=== PATIENT | female | born 1955 | race Caucasian/White ===

== ENCOUNTER → 2019-02-20 | Outpatient (CLI) | payer OTHER ==
[~2019-02-20] MED LIST: ACCUPRIL40 MG PO; ACYCLOVIR 400400 M1; AMBIEN 10 MG TA10 MG PO; AMITRIPTYLINE H25 M2 PO; ASPIR 8181 MG PO; B COMPLETE1 EAC1 PO; CO-ENZYME Q101 EACH PO; CYCLOBENZAPRINE5 MG PO; DILTIAZEM ER180 M1 PO; HYDROCODONE-AP1 EAC6 PO; K-DUR 20 MEQ T20 MEQ PO; LASIX 40 MG TAB40 M1 GT; LASIX 40 MG TAB40 M1 PO; LOVASTAT20 PO; MAGNESIUM250 M1 PO; MEGA RED KRILL OIL PO; MELATONIN3 MG PO; MENEST0.625 MG PO; MINOCIN100 MG PO; NEURONTIN 300300 M1 PO; NORCO 7.5-3251 EACH PO; PHENERGAN25 MG RE; PREDNISONE 10 M10 M1 PO; PREVACID 30MG C30 M1 PG; PRILOSEC40 MG PO; ROSUVASTATIN CA20 MG PO; VICODIN 5-5001 EACH PO; VITAMIN B-125000 MCG SL; VITAMIN D-32000 UNIT PO; XANAX 0.25 MG0.25 MG PO; ZANTAC150 M2 PO; ZOCOR 20 MG TAB20 M1 PO
== END ==
LOC: CAT 10:49
DX: Z13.6 Encounter for screening for cardiovascular disorders (principal); E78.00 Pure hypercholesterolemia, unspecified; I25.10 Atherosclerotic heart disease of native coronary artery without angina pectoris

== ENCOUNTER 2019-03-16 07:46 | Inpatient (IN) | payer OTHER ==
[2019-03-06 13:32] LABS: HEMATOCRIT 41.7 % (37.0-47.0); HEMOGLOBIN 14.1 gm/dL (12.0-15.0); MCH 32.3 pg (26.0-34.0); MCHC 33.7 g/dL (28.0-37.0); RBC 4.35 mil/uL (4.20-5.00); RDW 13.9 % (10.5-14.5); WBC 7.9 thou/uL (4.0-11.0)
[2019-03-06 13:36] LABS: URINE BILIRUBIN NEGATIVE (Negative); URINE BLOOD NEGATIVE (Negative); URINE CLARITY CLEAR; URINE COLOR YELLOW; URINE GLUCOSE-RANDOM* NEGATIVE (Negative); URINE KETONES 1+ (Negative); URINE LEUKOCYTES-REFLEX NEGATIVE (Negative); URINE NITRITE-REFLEX NEGATIVE (Negative); URINE PROTEIN (DIPSTICK) NEGATIVE (Negative); URINE UROBILINOGEN 0.2 E.U./dl (0.2-1.0)
[2019-03-06 13:43] LABS: ALBUMIN 4.4 g/dL (3.4-5.0); CALCIUM 9.6 mg/dL (8.5-10.1)
[2019-03-06 13:45] LABS: PROTIME 10.1 Seconds (9.3-11.4)
[~2019-03-16] VITALS: Ht 165.1 cm; Wt 82.6 kg
[~2019-03-16 07:46] MED LIST changes: -ASPIR 8181 MG PO; -NEURONTIN 300300 M1 PO; -NORCO 7.5-3251 EACH PO
[2019-03-16 10:16] VITALS: BP 119/68
--- NOTE | 2019-03-16 13:57 | NUR ---
63 YO FEMALE ADMITTED TO 437 FROM PACU. A&OX4. GADIEL DRSG WITH POLAR PACK SECURED WITH HUAN WRAP. DENIES PAIN AT THIS TIME. FAMILY AT BEDSIDE. ORIENTED PT TO ROOM, CALL LIGHT WITH IN REACH.
[2019-03-16 15:16] VITALS: BP 121/67
[2019-03-16 19:14] VITALS: BP 121/62
[2019-03-16 23:51] VITALS: BP 118/58
--- NOTE | 2019-03-17 03:44 | NUR ---
PATIENT ALERT AND ORIEMTED X4. PATIENT GETTING UO TO BSC , PASSING FLATUS. SLEPT MOST OF NIGHT. DRESSING ON R KNEE D/I. DAUGHTER IN ROOM WITH PATIENT. C/O PAIN XI, MED GIVEN.
[2019-03-17 05:16] VITALS: BP 115/56
[2019-03-17 07:30] LABS: HEMATOCRIT 33.6 % (37.0-47.0); HEMOGLOBIN 11.3 gm/dL (12.0-15.0); MCH 32.8 pg (26.0-34.0); MCHC 33.7 g/dL (28.0-37.0); MCV 97.3 fL (80.0-100.0); RBC 3.46 mil/uL (4.20-5.00); RDW 14.1 % (10.5-14.5); WBC 14.8 thou/uL (4.0-11.0)
[2019-03-17 07:40] VITALS: BP 106/52
--- NOTE | 2019-03-17 10:23 | NUR ---
ASSESSMENT-PT LIVES AT HOME WITH HER . PT SAYS SHE HAS A ROLLER WALKER AT HOME ALREADY. ONLY CONCERN IS THAT SHE HAS A NARROW DOORWAY INTO THE BATHROOM. SPOUSE WILL ASSIST HER WITH WORKING OUT HOW TO GET TO THE BATHROOM OR THEY WILL GET A BSC. PT HAS HER OUTPT THERAPY APPOINTMENT ARRANGED FOR WEDNESDAY WITH [facility]. SPOUSE AND DTR AT [facility] BEDSIDE. NO OTHER DC NEEDS IDENTIFIED.
--- NOTE | 2019-03-17 13:56 | NUR ---
ASSUMED CARE OF PT AT 0700. PT UP AND ABLE TO WALK WITHOUT FATIGUE OR DIZZINESS. WORKED WITH PT AND WAS CLEARED. PT HAS POLAR PACK, GADIEL DRESSING, SCD'S AND KNEE HIGH BRIGITTE HOSE IN PLACE. PAIN UNDER CONTROL BY PAIN MEDICATION. WILL BE DISCHARGED FOLLOWING DOCTORS ORDERS. WILL CONTINUE TO MONITOR PT.
[2019-03-17] MEDS ORDERED: ASPIR 8181 MG PO (15:56)
[2019-03-17] MEDS ORDERED: NORCO 7.5-3251 EACH PO (15:56)
[2019-03-17] MEDS ORDERED: NEURONTIN 300300 M1 PO (15:57)
[2019-03-17 15:58] VITALS: BP 91/46
--- NOTE | 2019-03-17 15:59 | O ---
[facility] [address] OPERATIVE REPORT Name: RUDI COLES Room #: 437-P ADM IN M.R.#: [id number] Admission: 03/16/19 Attend Phys: Ilan Maldonado MD Discharge: Date of : 51 Report #: [id number] THIS REPORT FOR: //name// CC: Ilan Ha DATE OF SERVICE: 03/16/2019 PREOPERATIVE DIAGNOSIS: Right knee osteoarthritis. POSTOPERATIVE DIAGNOSIS: Right knee osteoarthritis. PROCEDURE: Right total knee arthroplasty using Navio robotic assistance. SURGEON: Ilan Maldonado MD. DRUG ENFORCEMENT AGENT: Shira Cordova PA-C. INDICATIONS FOR DRUG ENFORCEMENT AGENT: Throughout the case, extensive retraction and manipulation of the knee was required. This was afforded to me by my assistant prosecuting attorney. ANESTHESIA: LMA with an adductor canal block. IMPLANTS: [employer]hew size 5 Journey II BCS Oxinium femur, a size 3 tibia, size 9 polyethylene and size 35 patella. TOURNIQUET TIME: 52 minutes. ESTIMATED BLOOD LOSS: 25 mL. COMPLICATIONS: None. SPECIMENS: None. CONDITION UPON LEAVING THE OPERATING ROOM: Stable. INDICATIONS FOR PROCEDURE: The patient is a 63-year-old female with right knee osteoarthritis. She had failed conservative measures for this and after discussion with her, she elected for right total knee arthroplasty. DESCRIPTION OF PROCEDURE: Risks, benefits, alternatives, complications were discussed in detail with the patient including but not limited to risk of anesthesia, risk of damage to nerves, arteries, blood vessels, risk for infection, bleeding, risk for continued knee pain, need for reoperation. Informed consent was obtained from the patient. Right knee was appropriately marked in the preoperative holding area. IV Ancef was given for preoperative [facility] [address] [place] [address] OPERATIVE REPORT Name: RUDI COLESN Room #: 437-P [facility] IN M.R.#: [id number] Admission: 03/16/19 Attend Phys: Ilan Maldonado MD Discharge: Date of : 51 Report #: [id number] antibiotics. Adductor canal block was placed by Anesthesia. She was brought to the operating room and placed in supine position on operating room table. LMA anesthesia was induced without complication. Tourniquet was placed on the right thigh. Right lower extremity was prepped and draped in normal sterile fashion. Timeout was performed properly identifying the patient and procedure as well as the instrumentation and implants. All in the operating room were in agreement. Right lower extremity was exsanguinated, tourniquet was inflated. Tourniquet time was 52 minutes. Standard midline approach to the knee was made with 10 blade through the skin and soft tissue. Dissection was taken down sharply to the fascia and deep flaps were developed medially and laterally. Fresh 10 blade was used to make a medial parapatellar arthrotomy and the knee was inspected. There was severe medial compartment osteoarthritis with moderate lateral patellofemoral involvement. ACL and PCL were removed sharply. Reference pins were placed in the femur and the tibia and the knee was digitally mapped using the [employer] robotic system. Intraoperative plan was made and we sized the size 5 femur with a size 3 tibia and 10 spacer. After acceptance of the intraoperative plan, the distal femoral cut was made with a Navio bur. The distal femoral cutting block was then pinned in place. Chamfer cuts were made on the femur. Attention was then turned to the tibia. The remainder of the menisci removed with Bovie cautery. Tibial resection guide was pinned in place using the Navio for placement and tibial resection was made. After this, flexion and extension gaps were checked and found to have good balance in flexion and extension both medially and laterally. Tibia was then sized and found to be a size 3. Size 3 tibial trial was placed, pinned and punched. A size 5 femoral trial was placed and the box cut was made. This was then trialed with a size 9 polyethylene. The knee was taken through range of motion, found to be stable, found to have a millimeter to 2 millimeters of laxity medially and laterally throughout range of motion. A 9 mm was resected from the posterior surface of the patella and a size 35 patellar trial button was placed. Knee was taken through range of motion, found to be stable, found to have good patellar tracking. After this, trial components were removed. Bony ends were thoroughly irrigated with normal saline. A final size 3 tibia, size 5 Journey II BCS Oxinium posterior stabilized femur and a size 35 patella were cemented in place using standard cementation techniques. While the cement cured, a periarticular injection consisting of morphine, ropivacaine, epinephrine and Toradol was placed around the knee joint capsule. After the cement cured, the tourniquet was deflated. Hemostasis was obtained with Bovie cautery. Final size 9 polyethylene was placed. A gram of vancomycin was placed deep in the joint. Fascia was closed with 0 Vicryl, skin was closed with 2-0 Vicryl, 3-0 Monocryl and Dermabond. The patient tolerated this procedure well and went to recovery room under care of anesthesia postoperatively. <ELECTRONICALLY SIGNED> By: Ilan Maldonado MD 03/17/19 1559 [id number] Ilan Maldonado MD /nt
[2019-03-17 16:07] VITALS: BP 91/46
== END 2019-03-17 17:15 | disposition home or self-care (01) | DRG 470 ==
LOC: 4S 07:46 → TBA 07:46 → PRE 09:36 → 4S 13:56 → PRE 22:56 → ENTRNSPT 03-17 16:22 → 4S 03-17 17:15
PROVIDERS: ADMIT Orthopaedic Surgery
PROC: 0SRC069 Replacement of Right Knee Joint with Oxidized Zirconium on Polyethylene Synthetic Substitute, Cemented, Open Approach (ICD-10-PCS; principal; 2019-03-16)
PROC: 8E0Y0CZ Robotic Assisted Procedure of Lower Extremity, Open Approach (ICD-10-PCS; principal; 2019-03-16)
DX: M17.11 Unilateral primary osteoarthritis, right knee (principal); Z88.8 Allergy status to other drugs, medicaments and biological substances; Z88.6 Allergy status to analgesic agent; Z88.1 Allergy status to other antibiotic agents; Z91.041 Radiographic dye allergy status
CPT/HCPCS: 10102; 50010; 50101; 50415; 50954; 51130; 51225; 51320; 52001; 52282; 53000; 53078; 54118; 55372; 56527; 56528; 57095; 57103; 57110; 57127; 57180; 62110; 62900; 64042; 70005

== ENCOUNTER → 2020-01-25 | Outpatient (CLI) | payer OTHER ==
[~2020-01-25] MED LIST changes: +ASPIR 8181 MG PO; +NEURONTIN 300300 M1 PO; +NORCO 7.5-3251 EACH PO
== END ==
LOC: SJCVC 09:26
PROVIDERS: ATTEND Internal Medicine Cardiovascular Disease
DX: Z01.818 Encounter for other preprocedural examination (principal); I10 Essential (primary) hypertension; I47.1 Supraventricular tachycardia; E78.00 Pure hypercholesterolemia, unspecified; Z90.710 Acquired absence of both cervix and uterus; Z90.12 Acquired absence of left breast and nipple; Z90.09 Acquired absence of other part of head and neck; Z88.6 Allergy status to analgesic agent; Z88.5 Allergy status to narcotic agent; Z88.2 Allergy status to sulfonamides; Z88.1 Allergy status to other antibiotic agents; Z79.899 Other long term (current) drug therapy

== ENCOUNTER → 2020-10-25 | Outpatient (CLI) | payer OTHER, MEDICARE | LOC: SJCVC 11:05 | PROVIDERS: ATTEND Internal Medicine Cardiovascular Disease | DX: R93.1 Abnormal findings on diagnostic imaging of heart and coronary circulation (principal); I10 Essential (primary) hypertension; E78.00 Pure hypercholesterolemia, unspecified; I47.1 Supraventricular tachycardia; I87.2 Venous insufficiency (chronic) (peripheral); Z79.899 Other long term (current) drug therapy; Z79.82 Long term (current) use of aspirin; Z88.2 Allergy status to sulfonamides; Z88.5 Allergy status to narcotic agent; Z88.8 Allergy status to other drugs, medicaments and biological substances ==

== ENCOUNTER → 2020-11-01 | Outpatient (CLI) | payer OTHER, MEDICARE | LOC: SJCVCIMAG 11:24 | PROVIDERS: ATTEND Internal Medicine Cardiovascular Disease | DX: I08.8 Other rheumatic multiple valve diseases (principal); R93.1 Abnormal findings on diagnostic imaging of heart and coronary circulation; I10 Essential (primary) hypertension; E78.5 Hyperlipidemia, unspecified ==